=== PATIENT | male | born 1955 | race Caucasian/White ===

== ENCOUNTER 2023-11-12 11:53 | Emergency (ER) | payer MEDICARE, SELFPAY ==
[2023-11-12 11:57] VITALS: BP 167/93
[2023-11-12 12:11] LABS: % Basophils 1.1 % (0-2); % Eosinophils 5.4 % (0-6); % Immature Granulocytes 0.2 % (0-0.5); % Lymphocytes 23.3 % (20.5-51.1); % Monocytes 13.5 % (1.7-9.3); % Neutrophils 56.5 % (42.2-75.2); Absolute Basophils 0.1 10^3/uL (0-0.2); Absolute Eosinophils 0.5 10^3/uL (0-0.7); Absolute Monocytes 1.2 10^3/uL (0.1-0.6); Absolute Neutrophils 4.8 10^3/uL (1.4-6.5); Hematocrit 36.9 % (39.0-52.0); Hemoglobin 12.2 g/dL (13.0-18.0); Mean Corp Hgb Conc. 33.1 g/dL (33.0-37.0); Mean Corpuscular Hgb 31.8 pg (27.0-31.0); Mean Corpuscular Volume 96.1 fL (80.0-94.0); Mean Platelet Volume 9.8 fL (7.4-10.4); Nucleated Red Blood Cells % 0 % (-); Platelet Count 329 10^3/uL (130-400); Red Blood Cell Count 3.84 10^6/uL (4.70-6.10); Red Cell Dist. Width 13.6 % (11.5-14.5); White Blood Cell Count 8.5 10^3/uL (4.8-10.8)
[2023-11-12 12:30] LABS: ALT (SGPT) 16 U/L (0-50); AST (SGOT) 25 U/L (17-59); Albumin 4.5 g/dl (3.5-5.0); Alkaline Phosphatase 87 U/L (38-126); Blood Urea Nitrogen 15 mg/dl (9-20); Carbon Dioxide 23 mmol/L (22-30); Chloride 105 mmol/L (98-107); Glucose 111 mg/dl (70-99); Potassium 4.1 mmol/L (3.5-5.1); Sodium 139 mmol/L (135-145); Total Bilirubin 0.4 mg/dl (0.2-1.3); Total Protein 7.1 g/dl (6.3-8.2); eGFR > 60.00
[2023-11-12 13:53] VITALS: BMI 21.3
[2023-11-12 13:58] VITALS: BP 173/92
[2023-11-12 14:00] VITALS: BP 156/88
--- NOTE | 2023-11-12 14:11 | ED.GENMED ---
History of Present Illness
<Donovan Jlues DO - Last Filed: 11/13/23 22:34>
General
Chief Complaint: Change in Mental Status
Source: patient and family (Sister)
Exam Limitations: none
Time Seen by Provider: 11/12/23 13:41
Nursing documentation reviewed up to this point in time: agreed with
Travel History
Have you had any contact with someone who has COVID-19?: No
Do you have any symptoms of coronavirus? Fever > 100 degrees, chills, cough, shortness of breath, sore throat, loss of taste or smell, muscle aches, or headache?: No
History of Present Illness
History of Present Illness:
68-year-old male presents the emergency department due to increased confusion over the past several weeks. He has been having difficulties speaking and sleeping. He also states he is walking sideways.
Past History
<Donovan Jules, DO - Last Filed: 11/13/23 22:34>
Past History
ED Past Medical History: Psychiatric (Bipolar)
ED Past Surgical History: Appendectomy and Other (Rhinoplasty, ear pinning)
Social History
Tobacco: Former smoker
Alcohol: None
Drug: None
Living: alone
Review of Systems
<Donovan Jules DO - Last Filed: 11/13/23 22:34>
Review of Systems
Allergies reviewed?: Yes
All Other Systems: Not applicable
Constitutional: Reports no symptoms
EENT: Reports no symptoms
Respiratory: Reports no symptoms
Cardiac: Reports no symptoms
ABD/GI: Reports no symptoms
: Reports no symptoms
Musculoskeletal: Reports no symptoms
Skin: Reports no symptoms
Neurological: Reports other (Confusion)
Endocrine: Reports no symptoms
Hematologic/Lymphatic: Reports no symptoms
Psychiatric: Reports no symptoms
Phy Exam
<Donovan Jules DO - Last Filed: 11/13/23 22:34>
Physical Exam
Physical Exam:
Physical Exam
General: no apparent distress, not acutely ill
Neck: supple. no meningeal signs. normal posterior pharynx
Heart: s1/s2 regular rate and rhythm, no murmur. equal radial
pulses.
HEENT: Pupils equal round reactive to light, EOMI
Lungs: no acute respiratory distress. clear bilaterally
Abdomen: normal bowel sounds. not tender. no CVAT
Neuro: alert and oriented. no focal neurological deficits cranial nerves II through XII intact
Skin: no rash
Psychiatric: well kept. interactive and cooperative
Extremities: no edema. no calf tenderness. negative homans. good distal pulses
Course
<Donovan Jules, DO - Last Filed: 11/13/23 22:34>
Orders/Labs/Results
Orders:
Orders
11/12/23 12:02
Complete Blood Count/With Diff Urgent
Comprehensive Metabolic Panel Urgent
11/12/23 14:01
CT Head W/o Iv Contrast Urgent
Comment:
Reason For Exam: change in mental status/memory loss/headache
11/12/23 14:40
Physical Therapy Consult [Pt Eval And Treat] Urgent
Treatment: evaluate ambulation
Activity Level: Ambulate
11/12/23 15:08
Fentanyl, Urine Urgent
Urinalysis Reflex To Culture Urgent
Date Specimen was Collected: 11/12/23
Time Specimen was Collected: 12:20
Urine Drug Abuse Screen Urgent
Date Specimen was Collected: 11/12/23
Time Specimen was Collected: 12:20
11/12/23 15:41
Add On- LAB Urgent
Tests Added?: urine drug screen
Abnormal Lab Results
11/12/23 11/12/23
12:02 15:08
RBC 3.84 L 10^6/uL
(4.70-6.10)
Hgb 12.2 L g/dL
(13.0-18.0)
Hct 36.9 L %
(39.0-52.0)
MCV 96.1 H fL
(80.0-94.0)
MCH 31.8 H pg
(27.0-31.0)
Absolute Monos (auto) 1.2 H 10^3/uL
(0.1-0.6)
Monocytes % 13.5 H %
(1.7-9.3)
Glucose 111 H mg/dl
(70-99)
U Benzodiazepines Scrn Positive H
(Negative)
11/12/23 12:02
11/12/23 12:02
Vital Signs
Initial and Last Documented VS:
Initial Vital Signs
Temp Pulse Resp BP Pulse Ox
97.7 F 99 18 167/93 99
11/12/23 11:57 11/12/23 11:57 11/12/23 11:57 11/12/23 11:57 11/12/23 11:57
Last Documented Vital Signs
Temp Pulse Resp BP Pulse Ox
97.7 F 94 16 154/84 98
11/12/23 11:57 11/12/23 17:50 11/12/23 17:50 11/12/23 17:50 11/12/23 17:50
<Pablito Sumner, DO - Last Filed: 11/12/23 17:45>
Orders/Labs/Results
Orders:
Orders
11/12/23 12:02
Complete Blood Count/With Diff Urgent
Comprehensive Metabolic Panel Urgent
11/12/23 14:01
CT Head W/o Iv Contrast Urgent
Comment:
Reason For Exam: change in mental status/memory loss/headache
11/12/23 14:40
Physical Therapy Consult [Pt Eval And Treat] Urgent
Treatment: evaluate ambulation
Activity Level: Ambulate
11/12/23 15:08
Fentanyl, Urine Urgent
Urinalysis Reflex To Culture Urgent
Date Specimen was Collected: 11/12/23
Time Specimen was Collected: 12:20
Urine Drug Abuse Screen Urgent
Date Specimen was Collected: 11/12/23
Time Specimen was Collected: 12:20
11/12/23 15:41
Add On- LAB Urgent
Tests Added?: urine drug screen
Abnormal Lab Results
11/12/23 11/12/23
12:02 15:08
RBC 3.84 L 10^6/uL
(4.70-6.10)
Hgb 12.2 L g/dL
(13.0-18.0)
Hct 36.9 L %
(39.0-52.0)
MCV 96.1 H fL
(80.0-94.0)
MCH 31.8 H pg
(27.0-31.0)
Absolute Monos (auto) 1.2 H 10^3/uL
(0.1-0.6)
Monocytes % 13.5 H %
(1.7-9.3)
Glucose 111 H mg/dl
(70-99)
U Benzodiazepines Scrn Positive H
(Negative)
11/12/23 12:02
11/12/23 12:02
Vital Signs
Initial and Last Documented VS:
Initial Vital Signs
Temp Pulse Resp BP Pulse Ox
97.7 F 99 18 167/93 99
11/12/23 11:57 11/12/23 11:57 11/12/23 11:57 11/12/23 11:57 11/12/23 11:57
Last Documented Vital Signs
Temp Pulse Resp BP Pulse Ox
97.7 F 94 16 154/84 98
11/12/23 11:57 11/12/23 17:50 11/12/23 17:50 11/12/23 17:50 11/12/23 17:50
<Donovan Jules, DO - Last Filed: 11/13/23 22:34>
MDM/Problems Addressed
Differential Diagnosis Includes:
Intracranial hemorrhage, dementia, hallucinations, medication reaction
MDM/Problems Addressed:
68-year-old male with hallucinations, possibly due to dementia versus bipolar. No SI or HI. Will CT head. If no acute findings, patient is stable for discharge.
Chronic conditions affecting care: Psychiatric illness (Bipolar TBI)
Acute Exacerbation and/or Progression of Chronic Illness: Other (Bipolar, prior TBi)
<Donovan Jules, DO - Last Filed: 11/13/23 22:34>
*Radiology
Radiology exam reviewed: radiology read reviewed (ct head nad)
*Pulse Oximetry
Patient hypoxic: no
*EKG
Interpreted by ED Provider?: NA
*3Rd Pressman Interpretation
Rate: 3Rd Pressman- N/A
<Pablito Sumner, DO - Last Filed: 11/12/23 17:45>
*Critical Care Note
Total Time (30-74mins, 75-104mins- exclusive of procedures): Not Applicable
<Pablito Sumner, DO - Last Filed: 11/12/23 17:45>
Update Note
Update Note:
Care of patient was transitioned pending CT head. CT head negative. Patient and family feel comfortable going home
ED Attending Note
<Donovan Jules, DO - Last Filed: 11/13/23 22:34>
-
Portions of this chart may have been created with voice recognition software.� Occasional wrong word or��sound alike� substitutions may have occurred due to the inherent limitations of voice recognition software.
Discharge Plan
Departure
Patient Disposition: Home (Routine Discharge)
Date of Disposition: 11/12/23
Time of Disposition: 17:45
Patient with high blood pressure during this ER visit?: Yes
Condition: Good
Discharge Problem:
Hallucination
Instructions: Altered Mental Status (DC)
Prescriptions:
No Action
lithium carbonate 300 mg Capsule
300 mg PO TID
diazepam 10 mg Tablet
10 mg PO [id number] PRN (Reason: anxiety)
Patient Comments:
11/12/2023, prescribed Q12H but pt. takes [id number].
Zenpep 40,000-126,000- 168,000 unit Capsule,Delayed Release(Dr/Ec)
3 cap PO MEALS
Referrals:
Alexandrea Daniel MD [Family Provider] - Call in 1-3 days for appt
Medardo Woodard MD [Active] - Call in 1-3 days for appt
Activity Restrictions/Additional Instructions:
Please return for any worsening symptoms.
You may return at any time if you have further concerns.
Please follow up with your doctor at the first available appointment, preferably this week.
Please call the psychiatrist to make an appointment.
Interventions
Interventions:
*Risk Screen - Suicide Last Done: 11/12/23 11:57
*General Assessment Last Done: 11/12/23 11:57
*Neglect/Abuse Screening Last Done: 11/12/23 11:57
ED- Fall Risk Assessment Last Done: 11/12/23 13:53
*ED COVID-19 Vaccine History Last Done: 11/12/23 11:57
*Nursing Disposition Last Done: 11/12/23 17:58
ED- Pulmonary Assessment Last Done: 11/12/23 13:53
ED- Neurological Assessment Last Done: 11/12/23 13:53
ED- Cardiac Assessment Last Done: 11/12/23 13:53
ED Swallowing Screen Last Done: 11/12/23 14:15
Discharge Date and Time
Discharge Date/Time: 11/12/23 17:58
--- NOTE | 2023-11-12 14:26 | EDRN ---
Patient stated that he has not been sleeping well for several days due to having vivid dreams and nightmares and has been doing strange at night. Patient stated that he knows that it's his brain and not related to medicine. Per sister patient has
had increased confusion and unsteady gait for the past week. Patient was recently started on Zyprexa then stopped it last week but was told by his psychiatrist to restart it and would need to 'work through the hallucinations'. Patient stated that he
has been walking into [place] and has had multiple falls. Patient unable to state what month and year it is. Sister stated that this is something that the patient normally would know. Patient stated that he has had headaches but does not have one
currently.
[2023-11-12 15:20] LABS: Urine Albumin Negative (Neg - Trace); Urine Bilirubin Negative (Negative); Urine Character Clear (Clear); Urine Color Yellow; Urine Glucose Negative (Negative); Urine Ketone Negative (Negative); Urine Leukocyte Negative (Negative); Urine Nitrite Negative (Negative); Urine Occult Blood Negative (Negative); Urine Specific Gravity 1.015 (<1.030); Urine Urobilinogen Negative (Neg - 1+)
[2023-11-12 15:21] VITALS: BP 156/88; PULSE 65; O2SAT 99
[2023-11-12 17:24] LABS: Amphetamines Negative (Negative); Barbiturates Negative (Negative); Benzodiazepines Positive (Negative); Buprenorphine Negative (Negative); Cocaine Negative (Negative); Marijuana Negative (Negative); Methadone Negative (Negative); Methamphetamines Negative (Negative); Opiates Negative (Negative); Phencyclidine Negative (Negative); Tricyclic Antidepressants Negative (Negative)
[2023-11-12 17:46] LABS: Fentanyl, Urine Negative (Negative)
[2023-11-12 17:50] VITALS: BP 154/84
== END 2023-11-12 17:58 | disposition home or self-care (01) ==
LOC: EMR 11:53
PROVIDERS: EMERGENCY PHYSICIAN Emergency Medicine; FAMILY PHYSICIAN Family Medicine
DX: R44.3 Hallucinations, unspecified (principal); F31.9 Bipolar disorder, unspecified; Z87.891 Personal history of nicotine dependence
CPT/HCPCS: 99284; 70450; 80053; 80306; 80307; 81003; 85025

== ENCOUNTER 2023-12-18 17:28 | Emergency (ER) | payer MEDICARE, SELFPAY ==
[2023-12-18 17:35] VITALS: BP 122/62
--- NOTE | 2023-12-18 19:05 | ED.GENMED ---
History of Present Illness
General
Chief Complaint: Skin Surface Trauma
Source: patient
Time Seen by Provider: 12/18/23 18:54
Travel History
Have you had any contact with someone who has COVID-19?: No
Do you have any symptoms of coronavirus? Fever > 100 degrees, chills, cough, shortness of breath, sore throat, loss of taste or smell, muscle aches, or headache?: No
History of Present Illness
History of Present Illness:
68-year-old male presenting emergency department for evaluation of left forearm skin tear stating that 2 days ago he cut himself on a piece of furniture in his house and placed 2 Band-Aids over it and when attempting to remove the Band-Aids today
due to his thin skin this caused 2 minor skin tears. Due to the bleeding patient decided come to the ER to be further evaluated. He has no other injuries or concerns. Tetanus vaccine is up-to-date
Past History
Past History
ED Past Medical History: Asthma, COPD, Psychiatric (Bipolar) and Other (TBI)
ED Past Surgical History: Appendectomy and Other (Rhinoplasty, ear pinning)
Social History
Tobacco: Former smoker
Alcohol: None
Drug: None
Personal: Single
Living: alone
Review of Systems
Review of Systems
All Other Systems: ROS reviewed and negative except as documented in HPI and ROS
Phy Exam
Physical Exam
Physical Exam:
GENERAL: Alert , in no apparent distress
EYE: conjunctiva clear
Head: Normocephalic atraumatic
NECK: Supple,
ENT: mmm.
LUNGS: no acute respiratory distress
NEUROLOGICAL: Alert and oriented
SKIN: Warm and dry, 2 small skin tears noted to the dorsal left forearm, 1 skin tear is U-shaped, 2-1/2 cm in total length and able to be approximated wet-to-dry dressing. Second skin tear is more jagged and mostly able to be approximated but due
to the jagged this was unable to be fully approximated. No active bleeding
MUSCULOSKELETAL: well perfused.
PSYCH: Normal and appropriate interaction.
Scores
Heart Failure Risk
Heart Failure Risk Score: Not Applicable
Heart Score for Chest Pain Patients
STEMI patient?: Not applicable
Withdrawal Assessment of Alcohol
Withdrawal Assessment Completed?: Not applicable
Course
Vital Signs
Initial and Last Documented VS:
Initial Vital Signs
Temp Pulse Resp BP Pulse Ox
97.6 F 86 18 122/62 98
12/18/23 17:35 12/18/23 17:35 12/18/23 17:35 12/18/23 17:35 12/18/23 17:35
Last Documented Vital Signs
Temp Pulse Resp BP Pulse Ox
97.6 F 86 18 122/62 98
12/18/23 17:35 12/18/23 17:35 12/18/23 17:35 12/18/23 17:35 12/18/23 17:35
MDM/Problems Addressed
MDM/Problems Addressed:
Patient presenting the emergency department with 2 small skin tears. I was able to approximate the skin as best as possible and was able to control bleeding without any difficulty. Nonadherent gauze and a Cisco wrap were placed. Patient advised
on wound care as well as daily dressing changes. He is otherwise stable for discharge home.
*Pulse Oximetry
Patient hypoxic: no
*Critical Care Note
Total Time (30-74mins, 75-104mins- exclusive of procedures): Not Applicable
ED Attending Note
-
Portions of this chart may have been created with voice recognition software.� Occasional wrong word or��sound alike� substitutions may have occurred due to the inherent limitations of voice recognition software.
Discharge Plan
Departure
Patient Disposition: Home (Routine Discharge)
Date of Disposition: 12/18/23
Time of Disposition: 19:06
Patient with high blood pressure during this ER visit?: No
Discharge Problem:
Skin tear of left forearm without complication
Instructions: Wound Care (DC)
Prescriptions:
No Action
lithium carbonate 300 mg Capsule
300 mg PO TID
diazepam 10 mg Tablet
10 mg PO [id number] PRN (Reason: anxiety)
Patient Comments:
11/12/2023, prescribed Q12H but pt. takes [id number].
Zenpep 40,000-126,000- 168,000 unit Capsule,Delayed Release(Dr/Ec)
3 cap PO MEALS
Interventions
Interventions:
*Risk Screen - Suicide Last Done: 12/18/23 17:35
*General Assessment Last Done: 12/18/23 17:35
*Neglect/Abuse Screening Last Done: 12/18/23 17:35
*ED COVID-19 Vaccine History Last Done: 12/18/23 17:35
ED-Skin Assessment Last Done: 12/18/23 19:01
Discharge Date and Time
Print Language: TURKMEN
[2023-12-18 19:25] VITALS: BP 119/72
== END 2023-12-18 19:26 | disposition home or self-care (01) ==
LOC: EMR 17:28
PROVIDERS: EMERGENCY PHYSICIAN Emergency Medicine
DX: S51.812A Laceration without foreign body of left forearm, initial encounter (principal); W22.8XXA Striking against or struck by other objects, initial encounter; F31.9 Bipolar disorder, unspecified; J44.89 Other specified chronic obstructive pulmonary disease; Z87.820 Personal history of traumatic brain injury; Z87.891 Personal history of nicotine dependence
CPT/HCPCS: 99282

== ENCOUNTER → 2024-01-15 14:21 | Outpatient (REF) | payer MEDICARE, SELFPAY ==
[2024-01-15 15:38] LABS: ALT (SGPT) 28 U/L (0-50); AST (SGOT) 30 U/L (17-59); Albumin 4.4 g/dl (3.5-5.0); Alkaline Phosphatase 87 U/L (38-126); Blood Urea Nitrogen 17 mg/dl (9-20); Calcium 9.5 mg/dl (8.4-10.2); Carbon Dioxide 29 mmol/L (22-30); Chloride 103 mmol/L (98-107); Glucose 108 mg/dl (70-99); Lithium 1.4 mmol/L (0.6-1.2); Potassium 4.3 mmol/L (3.5-5.1); Sodium 140 mmol/L (135-145); Total Bilirubin 0.3 mg/dl (0.2-1.3); Total Protein 6.7 g/dl (6.3-8.2); eGFR > 60.00
[2024-01-15 15:50] LABS: % Basophils 0.7 % (0-2); % Eosinophils 3.7 % (0-6); % Immature Granulocytes 0.3 % (0-0.5); % Lymphocytes 12.7 % (20.5-51.1); % Monocytes 9.6 % (1.7-9.3); Absolute Basophils 0.1 10^3/uL (0-0.2); Absolute Eosinophils 0.4 10^3/uL (0-0.7); Absolute Lymphocytes 1.3 10^3/uL (1.2-3.4); Absolute Neutrophils 7.5 10^3/uL (1.4-6.5); Hemoglobin 13.9 g/dL (13.0-18.0); Mean Corp Hgb Conc. 33.1 g/dL (33.0-37.0); Mean Corpuscular Hgb 32.4 pg (27.0-31.0); Mean Corpuscular Volume 97.9 fL (80.0-94.0); Mean Platelet Volume 11.5 fL (7.4-10.4); Nucleated Red Blood Cells % 0 % (-); Platelet Count 250 10^3/uL (130-400); Red Blood Cell Count 4.29 10^6/uL (4.70-6.10); Red Cell Dist. Width 13.8 % (11.5-14.5); White Blood Cell Count 10.3 10^3/uL (4.8-10.8)
[2024-01-15 16:08] LABS: TSH Reflex To Free T4 1.81 uIU/ml (0.47-4.68)
== END ==
LOC: REG 14:21
PROVIDERS: ATTENDING PHYSICIAN Nurse Practitioner Psychiatric/Mental Health; FAMILY PHYSICIAN Family Medicine
DX: Z79.899 Other long term (current) drug therapy (principal)
CPT/HCPCS: 36415; 80053; 80178; 84443; 85025

== ENCOUNTER 2024-01-28 09:41 | Outpatient (RCR) | payer MEDICARE, SELFPAY | END 2024-01-28 23:59 | disposition home or self-care (01) | LOC: RPT 09:41 | PROVIDERS: ATTENDING PHYSICIAN Family Medicine | DX: R29.3 Abnormal posture (principal); Z86.73 Personal history of transient ischemic attack (TIA), and cerebral infarction without residual deficits; Z73.6 Limitation of activities due to disability | CPT/HCPCS: 97110; 97162 ==

== ENCOUNTER → 2024-02-08 17:02 | Outpatient (REF) | payer MEDICARE, SELFPAY ==
[2024-02-08 17:51] LABS: % Basophils 0.5 % (0-2); % Eosinophils 1.5 % (0-6); % Immature Granulocytes 0.4 % (0-0.5); % Lymphocytes 10.4 % (20.5-51.1); % Monocytes 10.4 % (1.7-9.3); % Neutrophils 76.8 % (42.2-75.2); Absolute Basophils 0.1 10^3/uL (0-0.2); Absolute Eosinophils 0.2 10^3/uL (0-0.7); Absolute Immature Granulocytes 0.1 10^3/uL (0-0.05); Absolute Lymphocytes 1.4 10^3/uL (1.2-3.4); Absolute Monocytes 1.4 10^3/uL (0.1-0.6); Hematocrit 43.5 % (39.0-52.0); Mean Corp Hgb Conc. 32.2 g/dL (33.0-37.0); Mean Corpuscular Hgb 32.2 pg (27.0-31.0); Mean Platelet Volume 10.5 fL (7.4-10.4); Nucleated Red Blood Cells % 0 % (-); Platelet Count 267 10^3/uL (130-400); Red Blood Cell Count 4.35 10^6/uL (4.70-6.10); Red Cell Dist. Width 13.4 % (11.5-14.5)
[2024-02-08 18:04] LABS: Iron 154 ug/dl (49-181)
[2024-02-08 18:13] LABS: Percent Saturation 37 % (20-50); Total Iron Binding Capacity 406 ug/dl (261-462)
[2024-02-08 18:40] LABS: Ferritin 44.7 ng/ml (17.9-464.0)
== END ==
LOC: REG 17:02
PROVIDERS: ATTENDING PHYSICIAN Nurse Practitioner Adult Health; FAMILY PHYSICIAN Family Medicine; REFERRING PHYSICIAN Nurse Practitioner Psychiatric/Mental Health
DX: E83.110 Hereditary hemochromatosis (principal)
CPT/HCPCS: 36415; 80178; 81256; 82728; 83540; 83550; 85025

== ENCOUNTER 2024-02-15 18:02 | Outpatient (RCR) | payer MEDICARE, SELFPAY | END 2024-02-15 23:59 | disposition home or self-care (01) | LOC: RPT 18:02 | PROVIDERS: ATTENDING PHYSICIAN Family Medicine | DX: R29.3 Abnormal posture (principal); Z86.73 Personal history of transient ischemic attack (TIA), and cerebral infarction without residual deficits; Z73.6 Limitation of activities due to disability | CPT/HCPCS: 97110; 97112; 97530 ==

== ENCOUNTER 2024-03-07 17:51 | Outpatient (RCR) | payer MEDICARE, SELFPAY | END 2024-03-29 06:15 | disposition home or self-care (01) | LOC: RPT 17:51 | PROVIDERS: ATTENDING PHYSICIAN Family Medicine | DX: R29.3 Abnormal posture (principal); Z86.73 Personal history of transient ischemic attack (TIA), and cerebral infarction without residual deficits; Z73.6 Limitation of activities due to disability | CPT/HCPCS: 97530 ==

== ENCOUNTER → 2024-03-16 13:54 | Outpatient (REF) | payer MEDICARE, SELFPAY ==
[2024-03-16 15:07] LABS: Lithium 1.7 mmol/L (0.6-1.2)
== END ==
LOC: REG 13:54
PROVIDERS: ATTENDING PHYSICIAN Nurse Practitioner Psychiatric/Mental Health
DX: Z79.899 Other long term (current) drug therapy (principal)
CPT/HCPCS: 36415; 80178

== ENCOUNTER 2024-03-22 16:38 | Emergency (ER) | payer MEDICARE, SELFPAY ==
[2024-03-22 16:47] VITALS: BP 121/87
--- NOTE | 2024-03-22 17:55 | ED.GENMED ---
History of Present Illness
General
Chief Complaint: Abnormal Lab Value
Source: patient and family (sister by phone)
Exam Limitations: none
Time Seen by Provider: 03/22/24 17:42
Nursing documentation reviewed up to this point in time: agreed with
History of Present Illness
History of Present Illness:
Patient to ED with possible lithium toxicity. He has been taking lithium for the past 6 months. 3 weeks ago wellbutrin was added to his regime. He had blood work last week and his provider called on and left a message that his lithium level
was too high and he needed to urgently go to ED. Unfortunately he was away and did not get the message until today. Brought self to ED for eval. Notes mild hand tremors. No other complaints. He does note that he has a history of hemachromatosis
and had his treatment the day before these labs were drawn.
Past History
Past History
ED Past Medical History: Asthma, COPD, Psychiatric (Bipolar) and Other (TBI)
ED Past Surgical History: Appendectomy and Other (Rhinoplasty, ear pinning)
Social History
Tobacco: Former smoker
Alcohol: None
Drug: None
Personal: Single
Living: alone
Review of Systems
Review of Systems
Allergies reviewed?: Yes
All Other Systems: ROS reviewed and negative except as documented in HPI and ROS
Constitutional: Reports no symptoms
EENT: Reports no symptoms
Respiratory: Reports no symptoms
Cardiac: Reports no symptoms
ABD/GI: Reports no symptoms
: Reports no symptoms
Musculoskeletal: Reports no symptoms
Skin: Reports no symptoms
Neurological: Reports other (mild hand tremors)
Psychiatric: Reports no symptoms
Phy Exam
General Physical Exam
General Presentation: well appearing and no apparent distress
General age: appears stated age
General Skin: warm and dry
General Habitus: normal
General Mental: alert
Cardiovascular Exam
Cardiovascular Exam: regular rate/rhythm and no edema
Pulmonary Exam
Pulmonary Exam: lungs clear and no respiratory distress
Neurological Exam
Neurological Exam: alert, oriented x3, CN II-XII intact, no motor deficits, no sensory deficits, normal gait and other (mild tremor bilateral hands)
Musculoskeletal Exam
Musculoskeletal Exam: full ROM and neuro vasc intact
Skin Exam
Skin Exam: normal color, warm/dry and no rash
Psychiatric Exam
Psychiatric Exam: normal mood/affect
Course
Orders/Labs/Results
Orders:
Orders
03/22/24 18:09
Complete Blood Count/With Diff Urgent
Comprehensive Metabolic Panel Urgent
[place] Urgent
Abnormal Lab Results
03/22/24
18:09
RBC 3.84 L 10^6/uL
(4.70-6.10)
Hgb 12.7 L g/dL
(13.0-18.0)
Hct 37.7 L %
(39.0-52.0)
MCV 98.2 H fL
(80.0-94.0)
MCH 33.1 H pg
(27.0-31.0)
MPV 10.6 H fL
(7.4-10.4)
Absolute Monos (auto) 0.8 H 10^3/uL
(0.1-0.6)
Lymphocytes % 16.6 L %
(20.5-51.1)
Glucose 104 H mg/dl
(70-99)
AST 62 H U/L
(17-59)
03/22/24 18:09
03/22/24 18:09
Vital Signs
Initial and Last Documented VS:
Initial Vital Signs
Temp Pulse Resp BP Pulse Ox
98.6 F 79 18 121/87 99
03/22/24 16:47 03/22/24 16:47 03/22/24 16:47 03/22/24 16:47 03/22/24 16:47
Last Documented Vital Signs
Temp Pulse Resp BP Pulse Ox
98.6 F 69 16 119/74 99
03/22/24 16:47 03/22/24 18:15 03/22/24 18:15 03/22/24 18:15 03/22/24 18:15
*Critical Care Note
Total Time (30-74mins, 75-104mins- exclusive of procedures): Not Applicable
Update Note
Update Note:
Labs reviewed. [place] level is therapeutic. All other labs acceptable. He is discharged home and will follow up with PCP in AM
ED Attending Note
-
Portions of this chart may have been created with voice recognition software.� Occasional wrong word or��sound alike� substitutions may have occurred due to the inherent limitations of voice recognition software.
Discharge Plan
Departure
Patient Disposition: Home (Routine Discharge)
Date of Disposition: 03/22/24
Time of Disposition: 18:53
Patient with high blood pressure during this ER visit?: No
Condition: Good
Covid-19: Not Applicable
Discharge Problem:
[place]-induced tremor
Instructions: [place]
Prescriptions:
No Action
lithium carbonate 300 mg Capsule
300 mg PO TID
diazepam 10 mg Tablet
10 mg PO [id number] PRN (Reason: anxiety)
Patient Comments:
11/12/2023, prescribed Q12H but pt. takes [id number].
Zenpep 40,000-126,000- 168,000 unit Capsule,Delayed Release(Dr/Ec)
3 cap PO MEALS
Referrals:
Alexandrea Daniel MD [Family Provider] -
Activity Restrictions/Additional Instructions:
Follow up with your provider in the AM
Interventions
Interventions:
*Risk Screen - Suicide Last Done: 03/22/24 18:05
*General Assessment Last Done: 03/22/24 18:05
*Neglect/Abuse Screening Last Done: 03/22/24 18:05
ED- Fall Risk Assessment Last Done: 03/22/24 18:58
*ED COVID-19 Vaccine History Last Done: 03/22/24 18:58
*Nursing Disposition Last Done: 03/22/24 18:58
Discharge Date and Time
Discharge Date/Time: 03/22/24 19:05
Print Language: CROATIAN
[2024-03-22 18:15] VITALS: BP 119/74
[2024-03-22 18:20] LABS: % Basophils 1.1 % (0-2); % Eosinophils 2.2 % (0-6); % Immature Granulocytes 0.2 % (0-0.5); % Lymphocytes 16.6 % (20.5-51.1); % Monocytes 9.3 % (1.7-9.3); % Neutrophils 70.6 % (42.2-75.2); Absolute Basophils 0.1 10^3/uL (0-0.2); Absolute Eosinophils 0.2 10^3/uL (0-0.7); Absolute Lymphocytes 1.3 10^3/uL (1.2-3.4); Absolute Monocytes 0.8 10^3/uL (0.1-0.6); Absolute Neutrophils 5.7 10^3/uL (1.4-6.5); Hematocrit 37.7 % (39.0-52.0); Hemoglobin 12.7 g/dL (13.0-18.0); Mean Corp Hgb Conc. 33.7 g/dL (33.0-37.0); Mean Corpuscular Hgb 33.1 pg (27.0-31.0); Mean Corpuscular Volume 98.2 fL (80.0-94.0); Mean Platelet Volume 10.6 fL (7.4-10.4); Nucleated Red Blood Cells % 0 % (-); Platelet Count 271 10^3/uL (130-400); Red Blood Cell Count 3.84 10^6/uL (4.70-6.10)
[2024-03-22 18:35] LABS: ALT (SGPT) 38 U/L (0-50); AST (SGOT) 62 U/L (17-59); Albumin 4.5 g/dl (3.5-5.0); Alkaline Phosphatase 98 U/L (38-126); Blood Urea Nitrogen 14 mg/dl (9-20); Calcium 9.5 mg/dl (8.4-10.2); Carbon Dioxide 27 mmol/L (22-30); Chloride 102 mmol/L (98-107); Glucose 104 mg/dl (70-99); Lithium 1.1 mmol/L (0.6-1.2); Potassium 4.8 mmol/L (3.5-5.1); Sodium 136 mmol/L (135-145); Total Bilirubin 0.7 mg/dl (0.2-1.3); Total Protein 6.5 g/dl (6.3-8.2); eGFR > 60.00
== END 2024-03-22 19:05 | disposition home or self-care (01) ==
LOC: EMR 16:38
PROVIDERS: Nurse Practitioner; EMERGENCY PHYSICIAN Emergency Medicine; FAMILY PHYSICIAN Family Medicine
DX: G25.1 Drug-induced tremor (principal); J45.909 Unspecified asthma, uncomplicated; J44.89 Other specified chronic obstructive pulmonary disease; F31.9 Bipolar disorder, unspecified; Z87.891 Personal history of nicotine dependence; Z90.49 Acquired absence of other specified parts of digestive tract
CPT/HCPCS: 99283; 80053; 80178; 85025

== ENCOUNTER → 2024-04-06 16:21 | Outpatient (REF) | payer MEDICARE, SELFPAY ==
[2024-04-06 17:42] LABS: % Basophils 1.1 % (0-2); % Eosinophils 2.7 % (0-6); % Immature Granulocytes 0.4 % (0-0.5); % Lymphocytes 17.8 % (20.5-51.1); Absolute Basophils 0.1 10^3/uL (0-0.2); Absolute Eosinophils 0.2 10^3/uL (0-0.7); Absolute Lymphocytes 1.4 10^3/uL (1.2-3.4); Absolute Monocytes 0.8 10^3/uL (0.1-0.6); Absolute Neutrophils 5.5 10^3/uL (1.4-6.5); Hematocrit 38.4 % (39.0-52.0); Hemoglobin 12.7 g/dL (13.0-18.0); Mean Corp Hgb Conc. 33.1 g/dL (33.0-37.0); Mean Corpuscular Hgb 32.6 pg (27.0-31.0); Mean Corpuscular Volume 98.7 fL (80.0-94.0); Nucleated Red Blood Cells % 0 % (-); Platelet Count 260 10^3/uL (130-400); Red Blood Cell Count 3.89 10^6/uL (4.70-6.10); Red Cell Dist. Width 13.1 % (11.5-14.5); White Blood Cell Count 8.1 10^3/uL (4.8-10.8)
[2024-04-06 17:56] LABS: Blood Urea Nitrogen 19 mg/dl (9-20); Lithium 0.9 mmol/L (0.6-1.2); eGFR > 60.00
== END ==
LOC: REG 16:21
PROVIDERS: ATTENDING PHYSICIAN Nurse Practitioner Psychiatric/Mental Health; FAMILY PHYSICIAN Family Medicine
DX: Z79.899 Other long term (current) drug therapy (principal)
CPT/HCPCS: 36415; 80178; 82565; 84520; 85025

== ENCOUNTER → 2024-05-23 14:23 | Outpatient (REF) | payer MEDICARE, SELFPAY ==
[2024-05-23 16:14] LABS: Blood Urea Nitrogen 20 mg/dl (9-20); Lithium 0.6 mmol/L (0.6-1.2); eGFR > 60.00
== END ==
LOC: REG 14:23
PROVIDERS: ATTENDING PHYSICIAN Nurse Practitioner Psychiatric/Mental Health; FAMILY PHYSICIAN Family Medicine
DX: Z79.899 Other long term (current) drug therapy (principal)
CPT/HCPCS: 36415; 80178; 82565; 84520

== ENCOUNTER → 2024-09-07 15:04 | Outpatient (REF) | payer MEDICARE, SELFPAY ==
[2024-09-07 16:11] LABS: % Basophils 1.2 % (0-2); % Eosinophils 3.2 % (0-6); % Immature Granulocytes 0.2 % (0-0.5); % Lymphocytes 26.3 % (20.5-51.1); % Monocytes 12.4 % (1.7-9.3); % Neutrophils 56.7 % (42.2-75.2); Absolute Basophils 0.1 10^3/uL (0-0.2); Absolute Eosinophils 0.3 10^3/uL (0-0.7); Absolute Lymphocytes 2.4 10^3/uL (1.2-3.4); Absolute Monocytes 1.1 10^3/uL (0.1-0.6); Absolute Neutrophils 5.1 10^3/uL (1.4-6.5); Hematocrit 42.6 % (39.0-52.0); Hemoglobin 14.2 g/dL (13.0-18.0); Mean Corp Hgb Conc. 33.3 g/dL (33.0-37.0); Mean Corpuscular Hgb 32.4 pg (27.0-31.0); Mean Corpuscular Volume 97.3 fL (80.0-94.0); Mean Platelet Volume 10.3 fL (7.4-10.4); Nucleated Red Blood Cells % 0 % (-); Platelet Count 254 10^3/uL (130-400); Red Blood Cell Count 4.38 10^6/uL (4.70-6.10); Red Cell Dist. Width 12.3 % (11.5-14.5)
[2024-09-07 16:26] LABS: ALT (SGPT) 24 U/L (0-50); AST (SGOT) 35 U/L (17-59); Albumin 4.9 g/dl (3.5-5.0); Alkaline Phosphatase 78 U/L (38-126); Blood Urea Nitrogen 15 mg/dl (9-20); Calcium 9.6 mg/dl (8.4-10.2); Carbon Dioxide 26 mmol/L (22-30); Chloride 99 mmol/L (98-107); Glucose 122 mg/dl (70-99); Lithium 0.5 mmol/L (0.6-1.2); Potassium 4.5 mmol/L (3.5-5.1); Sodium 138 mmol/L (135-145); Total Bilirubin 0.6 mg/dl (0.2-1.3); Total Protein 7.2 g/dl (6.3-8.2); eGFR > 60.00
[2024-09-07 16:56] LABS: TSH 1.35 uIU/ml (0.47-4.68)
== END ==
LOC: RAD 15:04
PROVIDERS: ATTENDING PHYSICIAN Nurse Practitioner Psychiatric/Mental Health; FAMILY PHYSICIAN Nurse Practitioner Adult Health
DX: Z79.899 Other long term (current) drug therapy (principal)
CPT/HCPCS: 36415; 80053; 80178; 84443; 85025

== ENCOUNTER → 2024-12-19 15:18 | Outpatient (REF) | payer MEDICARE, SELFPAY ==
[2024-12-19 17:08] LABS: Lithium 0.8 mmol/L (0.6-1.2)
== END ==
LOC: REG 15:18
PROVIDERS: ATTENDING PHYSICIAN Nurse Practitioner Psychiatric/Mental Health
DX: Z79.899 Other long term (current) drug therapy (principal)
CPT/HCPCS: 36415; 80178

== ENCOUNTER 2025-04-12 11:21 | Emergency (ER) | payer MEDICARE, SELFPAY ==
[2025-04-12] VITALS (7 sets, daily range): BP systolic 121–148; BP diastolic 77–107; BMI 18.1
--- NOTE | 2025-04-12 13:16 | ED.GENMED ---
History of Present Illness
General
Chief Complaint: Breathing Problem
Source: patient
Time Seen by Provider: 04/12/25 13:04
History of Present Illness
History of Present Illness:
71-year-old male presents with increased shortness of breath. This started a couple days ago and this morning when he woke up he was struggling to breathe considerably. He just refilled his inhaler yesterday. He has a history of COPD. He notes
since this morning his symptoms have improved slightly. He denies any leg swelling or calf pain. He states he did have a fever at 1 point. He states he was around someone that developed pneumonia. No other complaints at this time
Past History
Past History
ED Past Medical History: Asthma, COPD, Psychiatric (Bipolar) and Other (TBI)
ED Past Surgical History: Appendectomy and Other (Rhinoplasty, ear pinning)
Social History
Tobacco: Former smoker
Alcohol: None
Drug: None
Personal: Single
Living: alone
Phy Exam
Physical Exam
Physical Exam:
General: Well-appearing male no acute respiratory distress
HEENT: Normocephalic atraumatic
Heart: Regular rate and rhythm
Lungs: Wheeze throughout
Extremities: No cyanosis
Skin is warm no rash
Scores
Heart Failure Risk
Heart Failure Risk Score: Not Applicable
Course
Orders/Labs/Results
Orders:
Orders
04/12/25 13:15
Dexamethasone Sod Phosphate [Decadron] 10 mg IV NOW STA
Ipratropium/Albuterol Sulfate [Duoneb] 3 ml INH R NOW STA
CR Chest - 2 Views Urgent
Comment:
Reason For Exam: cough, sob
04/12/25 14:14
Complete Blood Count/With Diff Urgent
Comprehensive Metabolic Panel Urgent
Abnormal Lab Results
04/12/25
14:14
RBC 3.94 L 10^6/uL
(4.70-6.10)
Hgb 12.7 L g/dL
(13.0-18.0)
MCV 99.7 H fL
(80.0-94.0)
MCH 32.2 H pg
(27.0-31.0)
MCHC 32.3 L g/dL
(33.0-37.0)
MPV 10.5 H fL
(7.4-10.4)
Absolute Monos (auto) 0.8 H 10^3/uL
(0.1-0.6)
Lymphocytes % 17.4 L %
(20.5-51.1)
Monocytes % 11.1 H %
(1.7-9.3)
Glucose 103 H mg/dl
(70-99)
04/12/25 14:14
04/12/25 14:14
Vital Signs
Initial and Last Documented VS:
Initial Vital Signs
Temp Pulse Resp BP Pulse Ox
97.7 F 97 18 148/83 97
04/12/25 11:23 04/12/25 11:23 04/12/25 11:23 04/12/25 11:23 04/12/25 11:23
Last Documented Vital Signs
Temp Pulse Resp BP Pulse Ox
97.7 F 73 19 121/107 97
04/12/25 11:23 04/12/25 15:15 04/12/25 15:15 04/12/25 15:00 04/12/25 15:15
MDM/Problems Addressed
Differential Diagnosis Includes:
Shortness of breath. Consider COPD flare versus pneumonia versus heart failure
Check chest x-ray DuoNeb and Decadron ordered. Labs
*Pulse Oximetry
SaO2: 97
Oxygen Mode of Delivery: Room air
Patient hypoxic: no
*Critical Care Note
Total Time (30-74mins, 75-104mins- exclusive of procedures): Not Applicable
Update Note
Update Note:
Patient reevaluated feeling much better after nebulizer. Chest x-ray without acute finding. Lungs are clear upon reassessment. Suspect COPD flare. Will prescribe nebulizer solution, prednisone and doxycycline to cover. No indication for
admission
ED Attending Note
-
Portions of this chart may have been created with voice recognition software.� Occasional wrong word or��sound alike� substitutions may have occurred due to the inherent limitations of voice recognition software.
Discharge Plan
Departure
Patient Disposition: Home (Routine Discharge)
Date of Disposition: 04/12/25
Time of Disposition: 16:05
Patient with high blood pressure during this ER visit?: No
Discharge Problem:
COPD exacerbation
Instructions: Exacerbation of COPD (DC)
Prescriptions:
New
albuterol sulfate 2.5 mg /3 mL (0.083 %) solution for nebulization
2.5 mg inhalation QID PRN (Reason: bronchospasm) Qty: 75 0RF
doxycycline hyclate 100 mg capsule
100 mg PO BID Qty: 14 0RF
prednisone 20 mg tablet
40 mg PO DAILY 5 Days Qty: 10 0RF
No Action
lithium carbonate 300 mg Capsule
300 mg PO DAILY
diazepam 10 mg Tablet
10 mg PO [id number] PRN (Reason: anxiety)
Patient Comments:
Zenpep 40,000-126,000- 168,000 unit Capsule,Delayed Release(Dr/Ec)
1 cap PO MEALS
lithium carbonate 150 mg Capsule
150 mg PO HS
bupropion HCl 75 mg Tablet
150 mg PO DAILY@1200
Zenpep 40,000-126,000- 168,000 unit Capsule,Delayed Release(Dr/Ec)
1 cap PO DAILYPRN PRN (Reason: WITH SNACKS)
Trelegy Ellipta 200-62.5-25 mcg Blister With Device
1 inh INHALATION R DAILY
Referrals:
Alexandrea Daniel MD [Family Provider, [facility]]
Activity Restrictions/Additional Instructions:
Use nebulizer as needed. Use prednisone as directed. Use antibiotic as directed. Return here for worsening breathing otherwise follow-up with your doctor
Interventions
Interventions:
*Risk Screen - Suicide Last Done: 04/12/25 11:23
*General Assessment Last Done: 04/12/25 14:02
*Neglect/Abuse Screening Last Done: 04/12/25 11:23
*ED- Fall Risk Assessment Last Done: 04/12/25 14:02
*ED COVID-19 Vaccine History Last Done: 04/12/25 14:02
ED- Cardiac Assessment Last Done: 04/12/25 15:25
ED- Pulmonary Assessment Last Done: 04/12/25 15:25
Discharge Date and Time
Print Language: MAURITIAN
[2025-04-12] MEDS: DUONEB 3 ML INH (14:05)
[2025-04-12] MEDS: DECADRON 10 MG IV (14:19)
[2025-04-12 14:31] LABS: Hematocrit 39.3 % (39.0-52.0); Hemoglobin 12.7 g/dL (13.0-18.0); Mean Corp Hgb Conc. 32.3 g/dL (33.0-37.0); Mean Corpuscular Volume 99.7 fL (80.0-94.0); Nucleated Red Blood Cells % 0 % (-); Platelet Count 235 10^3/uL (130-400); Red Cell Dist. Width 13.2 % (11.5-14.5)
[2025-04-12 14:50] LABS: ALT (SGPT) 44 U/L (0-50); AST (SGOT) 54 U/L (17-59); Albumin 4.5 g/dl (3.5-5.0); Alkaline Phosphatase 72 U/L (38-126); Blood Urea Nitrogen 9 mg/dl (9-20); Calcium 9.4 mg/dl (8.4-10.2); Carbon Dioxide 29 mmol/L (22-30); Chloride 105 mmol/L (98-107); Glucose 103 mg/dl (70-99); Potassium 4.6 mmol/L (3.5-5.1); Sodium 141 mmol/L (135-145); Total Protein 6.6 g/dl (6.3-8.2); eGFR > 60.00
== END 2025-04-12 16:30 | disposition home or self-care (01) ==
LOC: EMR 11:21
PROVIDERS: Physician Assistant; EMERGENCY PHYSICIAN Emergency Medicine; FAMILY PHYSICIAN Family Medicine
DX: J44.1 Chronic obstructive pulmonary disease with (acute) exacerbation (principal); Z87.891 Personal history of nicotine dependence
CPT/HCPCS: 99284; 94640; 96374; 71046; 80053; 85025

== ENCOUNTER → 2025-08-10 13:09 | Outpatient (REF) | payer MEDICARE, SELFPAY ==
[2025-08-10 14:12] LABS: Hematocrit 39.1 % (39.0-52.0); Hemoglobin 12.9 g/dL (13.0-18.0); Mean Corp Hgb Conc. 33.0 g/dL (33.0-37.0); Mean Corpuscular Volume 99.7 fL (80.0-94.0); Nucleated Red Blood Cells % 0 % (-); Platelet Count 262 10^3/uL (130-400); Red Cell Dist. Width 12.8 % (11.5-14.5)
[2025-08-10 14:33] LABS: ALT (SGPT) 25 U/L (0-50); AST (SGOT) 39 U/L (17-59); Albumin 4.3 g/dl (3.5-5.0); Alkaline Phosphatase 93 U/L (38-126); Blood Urea Nitrogen 12 mg/dl (9-20); Calcium 9.3 mg/dl (8.4-10.2); Carbon Dioxide 27 mmol/L (22-30); Chloride 105 mmol/L (98-107); Glucose 120 mg/dl (70-99); Lithium 0.8 mmol/L (0.6-1.2); Potassium 4.3 mmol/L (3.5-5.1); Sodium 138 mmol/L (135-145); Total Protein 6.9 g/dl (6.3-8.2); eGFR > 60.00
== END ==
LOC: REG 13:09
PROVIDERS: ATTENDING PHYSICIAN Nurse Practitioner Psychiatric/Mental Health; FAMILY PHYSICIAN Family Medicine
DX: Z79.899 Other long term (current) drug therapy (principal)
CPT/HCPCS: 36415; 80053; 80178; 84443; 85025